=== PATIENT | female | born 1965 | race Caucasian/White ===

== ENCOUNTER → 2018-03-23 12:58 | Outpatient (CLI) | payer OTHER ==
[~2018-03-23 12:58] MED LIST: DURICEF500 MG PO; HYDROCHLOROTHIA25 MG PO; HYDROCODON-ACE1 EAC7 PO; OMEPRAZOLE DR 20 MG; ULTRAM50 MG PO; YAZMIN PO
[2018-04-20 06:02] VITALS: BMI 24.8
== END | disposition home or self-care (01) ==
LOC: D.MRI 12:58
DX: M67.431 Ganglion, right wrist (principal)

== ENCOUNTER 2018-04-20 05:23 | Day surgery (SDC) | payer OTHER ==
[2018-04-19 12:08] LABS: HEMATOCRIT 37.9 % (36.0-48.0); HEMOGLOBIN 13.2 g/dL (12-16); MCH 31.6 pg (26.0-34.0); MCHC 34.8 g/dL (31.0-37.0); MCV 90.7 fL (80.0-100.0); MEAN PLATELET VOLUME 8.9 fL (7.4-10.4); RBC 4.18 10x6/uL (4.00-5.40); RDW 13.4 % (11.5-14.5); WBC 10.3 10x3/uL (4.8-10.8)
[~2018-04-20] VITALS: Ht 160 cm; Wt 63.5 kg
--- NOTE | ~2018-04-20 | OP ---
PATIENT NAME: NIKOLAI BARRAGAN MEDICAL RECORD: [id number] :65 LOCATION:[facility] ADMISSION DATE: SURGEON: ALLEN NAYLOR DO DATE OF OPERATION: 04/20/2018 PROCEDURE PERFORMED: Right volar wrist ganglion excision. PREOPERATIVE DIAGNOSIS: Right volar wrist ganglion. POSTOPERATIVE DIAGNOSIS: Right volar wrist ganglion. INDICATIONS: Ms. Barragan is a 52-year-old right-hand dominant female who presented to my office after several months to a year of having a volar wrist ganglion kept increasing in size and bothering her. It was painful to move her wrist and she was tired of dealing with the pain. MRI was done to ensure that it was not an aneurysm of the radial artery or anywhere in the area or entwined with it and indeed it was not visited the risks and benefits of the surgery with her including damage to the radial artery. She did have a negative Greg's test, so she had good blood flow with the radial and ulnar artery and she is aware of the risks including damage to nerves; the radial artery itself and other vessels, need for further surgery, the chance of recurrence with this, higher chance of recurrence to the volar wrist ganglions. She was okay with the risks and benefits and wanted to proceed forward with the procedure. SURGEON: Allen Naylor DO DESCRIPTION OF PROCEDURE: The patient was taken to the OR suite, laid in supine position, given general anesthetic, given 2 grams Ancef preoperatively. Timeout was performed, everyone was in agreement of the correct side, site, patient, and procedure. The right upper extremity was prepped and draped in sterile fashion with tourniquet above the elbow. After it was prepped and draped, an Esmarch was used to exsanguinate the right upper extremity and tourniquet was inflated to 250 mmHg and was up for 8 minutes. Once the tourniquet was up, an incision was made right over the ganglion. Careful dissection was made down around the ganglion cyst and the radial artery was protected with a Ragnell. The cyst was dissected out and the stalk was dissected out and burned with a bipolar. The cyst was sent for specimen. Tourniquet was then let down and at 8 minutes, 3 mL of 0.25% Marcaine with epinephrine was injected around the site. The incision was then closed with a 5-0 Monocryl, first in the inverted interrupted and then ran on the skin. Steri-Strips were placed on the incision and then Adaptic, 4 x 4s, Kerlix, and Coban was lightly wrapped on the wrist. The patient was awakened and taken to recovery in stable condition. BLOOD LOSS: Minimal. TRANSINT:[id number] Voice Confirmation ID: [id number] DOCUMENT ID: [id number] OPERATIVE REPORT [id number] NIKOLAI BARRAGAN MICHAEL D, DO at 0924 CC: [id number] DICTATION DATE: 04/20/18817 PASSENGER BARGE MASTER: 04/20/18 [id number] [facility] [address] [place] [address]
[~2018-04-20 05:23] MED LIST changes: -DURICEF500 MG PO; -HYDROCODON-ACE1 EAC7 PO; -ULTRAM50 MG PO
[2018-04-20 06:02] VITALS: BP 131/84; Ht 160 cm; Wt 63.5 kg
[2018-04-20 06:32] LABS: HCG URINE NEGATIVE (NEGATIVE)
[2018-04-20] MEDS ORDERED: HYDROCODON-ACE1 EAC7 PO (08:13)
[2018-04-20] MEDS ORDERED: DURICEF500 MG PO (08:13)
[2018-04-20] MEDS ORDERED: ULTRAM50 MG PO (08:14)
== END 2018-04-20 10:00 | disposition home or self-care (01) ==
LOC: D.OPS 05:23
PROVIDERS: Anesthesiology; Orthopaedic Surgery
DX: M67.431 Ganglion, right wrist (principal)

== ENCOUNTER → 2019-05-27 11:00 | Outpatient (CLI) | payer OTHER ==
[2018-04-20 06:02] VITALS: BMI 24.8
[~2019-05-27 11:00] MED LIST changes: +DURICEF500 MG PO; +HYDROCODON-ACE1 EAC7 PO; +ULTRAM50 MG PO
== END | disposition home or self-care (01) ==
LOC: D.MAMMO 11:00
PROVIDERS: ATTEND Emergency Medicine
DX: Z12.31 Encounter for screening mammogram for malignant neoplasm of breast (principal)